=== PATIENT | male | born 1945 | race Caucasian/White ===

== ENCOUNTER 2023-05-06 17:55 | Observation (INO) | payer OTHER ==
--- OUTSIDE RECORDS SUMMARY | 2023-05-06 17:59 | XMS REPORT | Continuity of Care Document ---
Author Name Unknown Address [address] [facility] [address] [place] [address] [facility] thconnect Address [address] [facility] [address] [place] [address] Care Team Providers Care Cook Ship Name Role Phone Clarissa Krishnan Attending Clinician Unavailable Problems Condition Name Condition Details Condition Category Status Onset Date Resolution Date Last Treatment Date Treating Clinician Comments Source [id number] Glaucoma of right eye, unspecifie d glaucoma type Problem Active [facility] Social History Social Habit Start Date Stop Date Quantity Comments Source Sex Assigned At [facility] History of Tobacco Use [facility] Smoking Status Start Date Stop Date Source Unknown if ever smoked Commo n [facility] Never Smoker [facility] Medications Ordered Medication Name Filled Medication Name Start Date Stop Date Current Medication? Ordering Clinician Indication Dosage Frequency Signature (SIG) Comments Components Source Fish Oil Fish Oil No Fish Oil Garlic Garlic No Garlic Multi Vitamin Multi Vitamin No Multi Vitamin Vyzulta 0.024 % Vyzulta 0.024 % No Vyzulta 0.024 % Lumigan 0.01 % Lumigan 0.01 % No 1{drop_ into_af fected_ eye_in_ the_eve mary} QD Lumigan 0.01 % Fish Oil Fish Oil No Fish Oil Garlic Garlic No Garlic Multi Vitamin Multi Vitamin No Multi Vitamin Vyzulta 0.024 % Vyzulta 0.024 % No Vyzulta 0.024 % Lumigan 0.01 % Lumigan 0.01 % No 1{drop_ into_af fected_ eye_in_ the_eve mary} QD Lumigan 0.01 % Vyzulta 0.024 % Vyzulta 0.024 % No Vyzulta 0.024 % Vyzulta 0.024 % Vyzulta 0.024 % No Vyzulta 0.024 % Vyzulta 0.024 % Vyzulta 0.024 % No Vyzulta 0.024 % Fish Oil Fish Oil No Fish Oil Garlic Garlic No Garlic Multi Vitamin Multi Vitamin No Multi Vitamin Vyzulta 0.024 % Vyzulta 0.024 % No Vyzulta 0.024 % Lumigan 0.01 % Lumigan 0.01 % No 1{drop_ into_af fected_ eye_in_ the_eve mary} QD Lumigan 0.01 % Fish Oil Fish Oil No Fish Oil Garlic Garlic No Garlic Multi Vitamin Multi Vitamin No Multi Vitamin Vyzulta 0.024 % Vyzulta 0.024 % No Vyzulta 0.024 % Lumigan 0.01 % Lumigan 0.01 % No 1{drop_ into_af fected_ eye_in_ the_eve mary} QD Lumigan 0.01 % Fish Oil Fish Oil No Fish Oil Garlic Garlic No Garlic Multi Vitamin Multi Vitamin No Multi Vitamin Vyzulta 0.024 % Vyzulta 0.024 % No Vyzulta 0.024 % Lumigan 0.01 % Lumigan 0.01 % No 1{drop_ into_af fected_ eye_in_ the_eve mary} QD Lumigan 0.01 % Immunizations Ordered Immunization Name Filled Immunization Name Date Status Comments Source Pneumovax (PPSV23) Pneumovax (PPSV23) 2018-03-13 14:28:00 Completed [facility] Pneumovax (PPSV23) Pneumovax (PPSV23) 2018-03-13 14:28:00 Completed [facility] Pneumovax (PPSV23) Pneumovax (PPSV23) 2018-03-13 14:28:00 Completed [facility] Shingrix Shingrix 2018-01-11 14:26:[address] [facility] Shingrix Shingrix 2018-01-11 14:26:00 Completed [facility] Shingrix Shingrix 2018-01-11 14:26:00 Completed [facility] Shingrix Shingrix 2017-08-15 14:25:00 Completed [facility] Shingrix Shingrix 2017-08-15 14:25:00 Completed [facility] Shingrix Shingrix 2017-08-15 14:25:00 Completed [facility] Prevnar 13 (PCV13) Prevnar 13 (PCV13) 2017-01-24 14:27:00 Completed [facility] Prevnar 13 (PCV13) Prevnar 13 (PCV13) 2017-01-24 14:27:00 Completed [facility] Prevnar 13 (PCV13) Prevnar 13 (PCV13) 2017-01-24 14:27:00 Completed [facility] Shingrix Shingrix Unknown Completed [facility] Pneumovax (PPSV23) Pneumovax (PPSV23) Unknown Completed [facility] Prevnar 13 (PCV13) Prevnar 13 (PCV13) Unknown Completed [facility] Shingrix Shingrix Unknown Completed [facility] Shingrix Shingrix Unknown Completed [facility] Pneumovax (PPSV23) Pneumovax (PPSV23) Unknown Completed [facility] Prevnar 13 (PCV13) Prevnar 13 (PCV13) Unknown Completed [facility] Shingrix Shingrix Unknown Completed [facility] Shingrix Shingrix Unknown Completed [facility] Pneumovax (PPSV23) Pneumovax (PPSV23) Unknown Completed [facility] Prevnar 13 (PCV13) Prevnar 13 (PCV13) Unknown Completed [facility] Shingrix Shingrix Unknown Completed [facility] Shingrix Shingrix Unknown Completed [facility] Pneumovax (PPSV23) Pneumovax (PPSV23) Unknown Completed [facility] Prevnar 13 (PCV13) Prevnar 13 (PCV13) Unknown Completed [facility] Shingrix Shingrix Unknown Completed [facility] Shingrix Shingrix Unknown Completed [facility] Pneumovax (PPSV23) Pneumovax (PPSV23) Unknown Completed [facility] Prevnar 13 (PCV13) Prevnar 13 (PCV13) Unknown Completed [facility] Shingrix Shingrix Unknown Completed [facility] Vital Signs Vital Name Observation Time Observation Value Comments S ource height 2022-12-20 15:00:00 70.5 [in_i] Comm on [facility] weight 2022-12-20 15:00:00 242.2 [lb_av] Co mmon [facility] temperature 2022-12-20 15:00:00 97.7 [degF] Com mon [facility] bmi 2022-12-20 15:00:00 34.26 kg/m2 Comm on [facility] oximetry 2022-12-20 15:00:00 97 % Commo n [facility] respiratory rate 2022-12-20 15:00:00 16 /min [facility] blood pressure systolic 2022-12-20 15:00:00 134 mm[Hg] [facility] blood pressure diastolic 2022-12-20 15:00:00 70 mm[Hg] [facility] height 2022-12-20 14:00:00 70.5 [in_i] Comm on [facility] weight 2022-12-20 14:00:00 242.2 [lb_av] Co mmon [facility] temperature 2022-12-20 14:00:00 97.7 [degF] Com [facility] bmi 2022-12-20 14:00:00 34.26 kg/m2 Comm on [facility] oximetry 2022-12-20 14:00:00 97 % Commo n [facility] respiratory rate 2022-12-20 14:00:00 16 /min Common [facility] blood pressure systolic 2022-12-20 14:00:00 134 mm[Hg[facility] blood pressure diastolic 2022-12-20 14:00:00 70 mm[Hg] Common [facility] height 2021-12-21 13:20:00 70.5 [in_i] Comm on [facility] weight 2021-12-21 13:20:00 234.6 [lb_av] Co mmon [facility] temperature 2021-12-21 13:20:00 98.6 [degF] Com [facility] bmi 2021-12-21 13:20:00 33.18 kg/m2 Comm on [facility] oximetry 2021-12-21 13:20:00 97 % Commo n [facility] respiratory rate 2021-12-21 13:20:00 16 /min [facility] blood pressure systolic 2021-12-21 13:20:00 130 mm[Hg] [facility] blood pressure diastolic 2021-12-21 13:20:00 72 mm[Hg] [facility] height 2021-12-21 14:00:00 70.5 [in_i] Comm on [facility] weight 2021-12-21 14:00:00 234.6 [lb_av] Co [facility] temperature 2021-12-21 14:00:00 98.6 [degF] Com [facility] bmi 2021-12-21 14:00:00 33.18 kg/m2 Comm on [facility] oximetry 2021-12-21 14:00:00 97 % Commo n [facility] respiratory rate 2021-12-21 14:00:00 16 /min [facility] blood pressure systolic 2021-12-21 14:00:00 130 mm[Hg] [facility] blood pressure diastolic 2021-12-21 14:00:00 72 mm[Hg] [facility] height 2021-11-07 14:00:00 70.5 [in_i] Comm on [facility] weight 2021-11-07 14:00:00 225 [lb_av] Comm on [facility] temperature 2021-11-07 14:00:00 98.4 [degF] Com mon [facility] bmi 2021-11-07 14:00:00 31.82 kg/m2 Comm on [facility] oximetry 2021-11-07 14:00:00 97 % Commo n [facility] respiratory rate 2021-11-07 14:00:00 16 /min [facility] blood pressure systolic 2021-11-07 14:00:00 138 mm[Hg] [facility] blood pressure diastolic 2021-11-07 14:00:00 76 mm[Hg] [facility] Encounters Start Date/Time End Date/Time Encounter Type Admission Type Attending Clinicians Care Facility Care Department Encounter ID Source 2022-12-19 13:27:00 Outpatient Ariella Clarissa [facility] [id number] [facility] 2022-03-06 13:36:01 Outpatient Clarissa Krishnan [facility] [id number] [facility] 2021-12-19 11:26:03 Outpatient Clarissa Krishnan [facility] [id number] [facility] 2021-11-05 13:42:02 Outpatient Clarissa Krishnan [facility] [id number] [facility] 2021-10-29 11:22:05 Outpatient Clarissa Krishnan [facility] [id number] [facility] 2022-12-30 00:00:00 2022-12-30 00:00:00 (TEL) [facility]C ST[facility] [id number] [facility] 2022-12-23 00:00:00 2022-12-23 00:00:00 (TEL) STLMLC STLMLC [id number] [facility] 2022-12-20 00:00:00 2022-12-20 00:00:00 OFFICE VISIT ESTAB PT LEVEL 3 STLMLC STLMLC [id number] [facility] 2022-12-20 00:00:00 2022-12-20 00:00:00 SUB ANNUAL [facility] WELLNESS VISIT STLMLC STLMLC [id number] [facility] 2022-12-11 00:00:00 2022-12-11 00:00:00 (TEL) STLMLC STLMLC [id number] [facility] 2021-12-21 00:00:00 2021-12-21 00:00:00 OFFICE VISIT EST PT LEVEL 3 STLMLC STLMLC [id number] [facility] 2021-12-21 00:00:00 2021-12-21 00:00:00 (MCR WELL) Medicare Wellness STLMLC STLMLC [id number] [facility] 2021-11-07 00:00:00 2021-11-07 00:00:00 OFFICE VISIT NEW PT LEVEL 3 STLMLC STLMLC [id number] [facility] Results Test Description Test Time Test Comments Results Result Co mments Source COMPREHENSIVE METABOLIC [id number] 00:00:00* Test Item Value Reference Range Interpretation Comme nts ALBUMIN (test code = 1751-7) 4.9 G/DL See_Comment [Automated SocialF5a ge] The system which generated this result transmitted reference range: 3.5-5.2 G/DL. The reference range was not used to interpret this result as normal/abnormal. ALKALINE PHOSPHATASE (test code = 6768-6) 76 U/L See_Comment [Automated message] The system which generated this result transmitted reference range: 40-125 U/L. The reference range was not used to interpret this result as normal/abnormal. BILIRUBIN, TOTAL (test code = 1975-2) 0.8 MG/DL See_Comment [Automated message] The system which generated this result transmitted reference range: <=1.2 MG/DL. The reference range was not used to interpret this result as normal/abnormal. BUN (test code = 3094-0) 9 MG/DL See_Comment [Automated messa ge] The system which generated this result transmitted reference range: 8-23 MG/DL. The reference range was not used to interpret this result as normal/abnormal. CALCIUM (test code = 06622-6) 9.4 MG/DL See_Comment [Automated messa ge] The system which generated this result transmitted reference range: 8.5-10.5 MG/DL. The reference range was not used to interpret this result as normal/abnormal. CALC A/G RATIO (test code = 1759-0) 2.3 RATIO See_Comment [Automated messa ge] The system which generated this result transmitted reference range: 1.0-2.6 RATIO. The reference range was not used to interpret this result as normal/abnormal. CALC BUN/CREAT (test code = 3097-3) 8 RATIO See_Comment [Automated messa ge] The system which generated this result transmitted reference range: 6-28 RATIO. The reference range was not used to interpret this result as normal/abnormal. CALC GLOBULIN (test code = 53528-4) 2.1 G/DL See_Comment [Automated messa ge] The system which generated this result transmitted reference range: 1.9-3.7 G/DL. The reference range was not used to interpret this result as normal/abnormal. CARBON DIOXIDE (test code = 1963-8) 27 MEQ/L See_Comment [Automated messa ge] The system which generated this result transmitted reference range: 19-31 MEQ/L. The reference range was not used to interpret this result as normal/abnormal. CHLORIDE (test code = 2075-0) 105 MEQ/L See_Comment [Automated messa ge] The system which generated this result transmitted reference range: 95-107 MEQ/L. The reference range was not used to interpret this result as normal/abnormal. CREATININE (test code = 2160-0) 1.18 MG/DL See_Comment [Automated messa ge] The system which generated this result transmitted reference range: 0.80-1.40 MG/DL. The reference range was not used to interpret this result as normal/abnormal. eGFR (2020 CKD-EPI) (test code = 78012-4) 64 ML/MIN/1.73 See_Comment [Automated messa ge] The system which generated this result transmitted reference range: >60 ML/MIN/1.73. The reference range was not used to interpret this result as normal/abnormal. GLUCOSE (test code = 1558-6) 92 MG/DL See_Comment [Automated messa ge] The system which generated this result transmitted reference range: 70-99 MG/DL. The reference range was not used to interpret this result as normal/abnormal. POTASSIUM (test code = 2823-3) 4.0 MEQ/L See_Comment [Automated messa ge] The system which generated this result transmitted reference range: 3.5-5.4 MEQ/L. The reference range was not used to interpret this result as normal/abnormal. PROTEIN, TOTAL (test code = 2885-2) 7.0 G/DL See_Comment [Automated messa ge] The system which generated this result transmitted reference range: 6.1-8.3 G/DL. The reference range was not used to interpret this result as normal/abnormal. AST (test code = 1920-8) 28 U/L See_Comment [Automated messa ge] The system which generated this result transmitted reference range: 9-50 U/L. The reference range was not used to interpret this result as normal/abnormal. ALT (test code = 1742-6) 23 U/L See_Comment [Automated messa ge] The system which generated this result transmitted reference range: 5-50 U/L. The reference range was not used to interpret this result as normal/abnormal. SODIUM (test code = 2951-2) 143 MEQ/L See_Comment [Automated messa ge] The system which generated this result transmitted reference range: 133-146 MEQ/L. The reference range was not used to interpret this result as normal/abnormal.
[2023-05-06 18:48] LABS: Absolute Lymphocytes (CBC) 1.7 K/uL (0.7-4.9); Hematocrit 40.8 % (39.6-49.0); Lymphocytes % 13.9 % (15.3-44.8); MCV 88.7 fL (80-100); MPV 7.7 fL (7.6-11.3); Platelets 279 thou/uL (152-406)
[2023-05-06 18:51] LABS: Specific Gravity 1.025 (1.005-1.030); Urine Bacteria None Seen /HPF (<20); Urine Bilirubin NEGATIVE (Negative); Urine Blood Trace (Negative); Urine Clarity Clear (Clear); Urine Color Light-Yellow (Yellow); Urine Glucose NEGATIVE (Negative); Urine Mucus Slight /HPF (None Seen); Urine Protein 1+ (Negative); Urine Urobilinogen Normal (Normal)
[2023-05-06 19:26] LABS: Bilirubin Total 0.4 mg/dL (0.2-1.0); Potassium 3.7 mEq/L (3.5-5.1); Protein, Total 7.7 g/dL (6.4-8.2); Troponin High Sensitivity 29.8 pg/mL (<58.9)
[2023-05-06 19:40] LABS: Protime INR 0.96
--- NOTE | 2023-05-06 19:46 | RAD REPORT ---
EXAM DESCRIPTION: CT - Head Brain Wo Cont - 05/06/2023 7:40 pm CLINICAL HISTORY: DIZZINESS Headache, drowsiness COMPARISON: No comparisons TECHNIQUE: All CT scans are performed using dose optimization technique as appropriate and may inclu de automated exposure control or mA/KV adjustment according to patient size. FINDINGS: No intracranial hemorrhage, hydrocephalus or extra-axial fluid collection.Mild generalized brain atrophy.No areas of brain edema or evidence of midline shift. The paranasal sinuses and mastoids are clear. The calvarium is intact. IMPRESSION: No acute intracranial abnormality.
--- NOTE | 2023-05-06 19:52 | RAD REPORT ---
EXAM DESCRIPTION: CT - Head angio - 05/06/2023 7:39 pm CLINICAL HISTORY: DIZZINESS Headache, drowsiness COMPARISON: Head Brain Wo Cont dated 05/06/2023; Neck Angio dated 05/06/2023 TECHNIQUE: CT angiography of the head was performed with MIPs. All CT scans are performed using dose optimization technique as appropriate and may include automated exposure control or mA/KV adjustment according to patient size. FINDINGS: No evidence of large vessel occlusion. No evidence of aneurysm is detected. No flow-limiti ng stenosis or vascular malformation identified. Antegrade flow is seen in the vertebral arteries. The vertebral arteries are codominant. The visualized dural venous sinuses are patent. IMPRESSION: No significant flow abnormality is detected.
--- NOTE | 2023-05-06 19:57 | RAD REPORT ---
EXAM DESCRIPTION: CT - Neck Angio - 05/06/2023 7:40 pm CLINICAL HISTORY: dizziness Headache, drowsiness, dizziness COMPARISON: No comparisons TECHNIQUE: CT angiography of the neck vessels was performed with MIPs. All CT scans are performed using dose optimization technique as appropriate and may include automated exposure control or mA/KV adjustment according to patient size. FINDINGS: A left aortic arch is identified with normal three vessel configuration of the great vesse ls. No significant flow abnormality is seen of the common carotid bilaterally. No significant stenosis is identified involving the cervical segments of both internal carotid arteri es. Mild soft plaque is seen in both carotid bulbs. Normal flow is seen within both vertebral arteries. Thyroid demonstrates a large nodule in the left lobe measuring 3 cm. IMPRESSION: No significant flow abnormality of the neck vessels is identified. 3 cm left thyroid lobe nodule. Recommend nonemergent thyroid ultrasound. NASCET criteria used. Mild 0-49% stenosis Moderate 50-69% stenosis Severe 70-99% stenosis
--- NOTE | 2023-05-06 20:08 | EDPHYS ---
Physician Documentation [facility] Name: Cipriano Wang Age: 78 yrs Sex: Male : 1945 Arrival Date: 05/06/2023 Time: 17:55 Bed 7 Private MD: ED Physician Isaias Rojas HPI: 05/06 18:25 This 78 yrs old Male presents to ER via Ambulatory with complaints of ec2 Dizziness. 18:25 Patient arrives today for vertigo. Patient with no history of vertigo, states that ec2 since approximately 25 hours ago he been feeling a room spinning sensation. Reports no fevers or chills, no cough or cold symptoms, no vomiting or diarrhea. Does report some nausea. Reports no recent falls or trauma.. Historical: - Allergies: 18:22 No Known Allergies; ph - Home Meds: 18:22 2 Eye Drops [Active]; ph - PMHx: 18:22 Glaucoma; ph - PSHx: 18:22 None; ph - Immunization history:: Adult Immunizations up to date, Client reports receiving the 2nd dose of the Covid vaccine, Last tetanus immunization: up to date. - Social history:: Smoking status: Patient denies any tobacco usage or history of. ROS: 18:25 Constitutional: as per hpi ec2 Exam: 18:25 Constitutional: GEN: NAD Head: atraumatic Eyes: EOMI Ears: External ears are ec2 normal. CV: regular rate LUNGS: no respiratory distress ABD: non-distended SKIN: no evidence of rashes MSK: no evidence of trauma NEURO: moves all extremities equally, cranial nerves II through XII intact, strength intact all 4 extremities, normal [id number], appropriate gait, no pronator drift. Vital Signs: 18:19 BP 192 / 106; Pulse 88; Resp 20; Temp 98.2; Pulse Ox 100% ; Weight 108.86 kg; Height 6 ph ft. 0 in. ; Pain 4/10; 18:43 Pulse 81; Resp 18 S; Pulse Ox 100% on R/A; kc6 19:10 BP 158 / 104; Pulse 77; Resp 18; Pulse Ox 99% ; vc1 20:58 BP 164 / 113; Pulse 77; Resp 18; Pulse Ox 98% ; vc1 21:47 BP 165 / 107; Pulse 79; Resp 18; Pulse Ox 100% ; vc1 22:39 BP 162 / 104; Pulse 50; Resp 18; Pulse Ox 98% ; vc1 18:19 Body Mass Index 32.55 (108.86 kg, 182.88 cm) ph 18:19 Pain Scale: Adult ph NIH Stroke Scale Scores: 18:25 NIHSS Score: 0 ph MDM: 18:18 Patient medically screened. ec2 18:25 Data reviewed: vital signs. ED course: Patient arrives today for evaluation of ec2 dizziness. Examination remarkable for well-appearing nontoxic dividual's otherwise in no acute distress with a reassuring neurologic exam. Will obtain lab work, EKG, CT scan of the head. Currently considered process such as ACS, electrolyte disturbances, arrhythmia, stroke.. 18:41 ED course: EKG independently reviewed and interpreted by me, shows normal sinus rhythm, ec2 rate of 82, no acute ST segment elevations, nonconcerning intervals.. 19:34 ED course: CBC, metabolic profile, urine, troponin are nonactionable. Pending CT ec2 imaging. . 20:01 ED course: CT imaging shows no acute intracranial process.. ec2 20:06 ED course: Patient with persistent dizziness, will admit to the hospitalist for ec2 continued management.. 05/06 18:24 Order name: CBC with Diff; Complete Time: 19:33 ec2 05/06 18:24 Order name: CMP; Complete Time: 19:33 ec2 05/06 18:24 Order name: Troponin High Sensitivity; Complete Time: 19:33 ec2 05/06 18:24 Order name: UAM; Complete Time: 19:33 ec2 05/06 18:24 Order name: Ptt, Activated; Complete Time: 19:41 ec2 05/06 18:24 Order name: PT-INR; Complete Time: 19:41 ec2 05/06 20:50 Order name: NT PRO-BNP EDMS 05/06 20:50 Order name: CBC with Automated Diff EDMS 05/06 20:50 Order name: CBC with Automated Diff EDMS 05/06 20:50 Order name: Comprehensive Metabolic Panel EDMS 05/06 20:50 Order name: Comprehensive Metabolic Panel EDMS 05/06 20:50 Order name: Lipid Profile EDMS 05/06 20:50 Order name: Lipid Profile EDMS 05/06 20:50 Order name: Troponin High Sensitivity EDMS 05/06 20:50 Order name: Troponin High Sensitivity EDTX 05/06 20:50 Order name: Thyroid Stimulating Hormone EDTX 05/06 21:00 Order name: Hemoglobin A1c EDTX 05/07 06:41 Order name: T4 Free EDTX 05/06 18:24 Order name: CT Head Angio; Complete Time: 20:01 ec2 05/06 18:24 Order name: CT Head Brain wo Cont; Complete Time: 20:01 ec2 05/06 18:24 Order name: CT Neck Angio; Complete Time: 20:01 ec2 05/06 20:56 Order name: Echo with Doppler EDTX 05/06 18:24 Order name: EKG; Complete Time: 18:25 ec2 05/06 18:24 Order name: EKG - Nurse/Tech; Complete Time: 18:39 ec2 05/06 18:25 Order name: Accucheck; Complete Time: 18:42 ec2 05/06 18:25 Order name: Cardiac monitoring; Complete Time: 18:39 ec2 05/06 18:25 Order name: IV Saline Lock; Complete Time: 18:42 ec2 05/06 18:25 Order name: Labs collected and sent; Complete Time: 18:42 ec2 05/06 18:25 Order name: NPO; Complete Time: 18:42 ec2 05/06 18:25 Order name: O2 Per Protocol; Complete Time: 18:34 ec2 05/06 18:25 Order name: O2 Sat Monitoring; Complete Time: 18:34 ec2 05/06 18:25 Order name: Stroke Swallow Screen; Complete Time: 18:42 ec2 Administered Medications: No medications were administered Disposition Summary: 05/06/23 20:07 Hospitalization Ordered Notes: Hospitalization Status: Inpatient Admission ec2 Provider: Shania Anguiano ec2 Condition: Stable ec2 Problem: new ec2 Symptoms: are unchanged ec2 Bed/Room Type: Standard ec2 Location: Telemetry/MedSurg (Inpatient)(05/07/23 11:25) bd Room Assignment: [facility](05/07/23 11:30) bd Diagnosis - Other peripheral vertigo ec2 Forms: - Medication Reconciliation Form ec2 - SBAR form ec2 - Leadership Thank You Letter ec2 NIH Stroke Scale - NIH Stroke Score Date: 05/06/2023 Time: 18:25 Total Score = 0 10. Dysarthria (speech clarity - read or repeat words) - 0(Normal) 11. Extinction and Inattention (visual/tactile/auditory/spatial/personal) - 0(No abnormality) 1a. Level of Consciousness (LOC) - 0(Alert) 1b. Level of Consciousness (LOC) (Month \T\ Age) - 0(Both) 1c. LOC Commands (Open \T\ Closes Eyes/Burnishing Machine Operator) - 0(Both) 2. Best Gaze (Lateral Gaze Paresis) - 0(Normal) 3. Visual Field Loss - 0(No visual loss) 4. Facial Palsy - 0(Normal) 5a. Left Arm: Motor (10-second hold) - 0(No drift) 5b. Right Arm: Motor (10-second hold) - 0(No drift) 6a. Left Leg: Motor (5-second hold - always test supine) - 0(No drift) 6b. Right Leg: Motor (5-second hold - always test supine) - 0(No drift) 7. Limb Ataxia (finger/nose \T\ heel/jasso - test with eyes open) - 0(Absent) 8. Sensory Loss (pinprick arms/legs/face) - 0(Normal) 9. Best Language: Aphasia (description/naming/reading) - 0(No aphasia) Initials: ph Signatures: Dispatcher [employer] Bridget Vogt Patricia RN RN ph Catie Kang RN RN Isaias Rojas MD MD ec2 Corrections: (The following items were deleted from the chart) 21:54 20:07 Telemetry/MedSurg (Inpatient) [facility] : 20:07 [facility] 05/07 11:25 05/06 21:54 [facility] ER HOLD cg bd 05/07 11:25 05/06 21:54 ERHOLD- cg bd 05/07 11:29 11:25 401 bd bd 11:30 11: bd bd
--- NOTE | 2023-05-06 20:08 | ER ---
Nurse's Notes [facility] Name: Cipriano Wang Age: 78 yrs Sex: Male : 1945 Arrival Date: 05/06/2023 Time: 17:55 Bed 7 Private MD: Diagnosis: Other peripheral vertigo Presentation: 05/06 18:19 Chief complaint: Patient states: Sudden onset of headache and dizziness yesterday at ph 1730 with associated nausea. Gait steady. Coronavirus screen: Vaccine status: Patient reports receiving the 2nd dose of the covid vaccine. Client denies travel out of the [place] in the last 14 days. Ebola Screen: Patient negative for fever greater than or equal to 101.5 degrees Fahrenheit, and additional compatible Ebola Virus Disease symptoms Patient denies exposure to infectious person. Patient denies travel to an Ebola-affected area in the 21 days before illness onset. Initial Sepsis Screen: Does the patient meet any 2 criteria? No. Patient's initial sepsis screen is negative. Does the patient have a suspected source of infection? No. Patient's initial sepsis screen is negative. Risk Assessment: Do you want to hurt yourself or someone else? Patient reports no desire to harm self or others. Onset of symptoms was May 05, 2023 at 17:30. 18:19 Method Of Arrival: Ambulatory 18:19 Acuity: NOLAN 2 Triage Assessment: 18:22 General: Appears in no apparent distress. Behavior is calm, cooperative. Pain: ph Complains of pain in head Pain does not radiate. Pain currently is 4 out of 10 on a pain scale. Neuro: No deficits noted. 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 Gait is steady, Speech is normal, Facial symmetry appears normal, Pupils are PERRLA, Intact Reports blurred vision dizziness, headache. Historical: - Allergies: 18:22 No Known Allergies; ph - Home Meds: 18:22 2 Eye Drops [Active]; ph - PMHx: 18:22 Glaucoma; ph - PSHx: 18:22 None; ph - Immunization history:: Adult Immunizations up to date, Client reports receiving the 2nd dose of the Covid vaccine, Last tetanus immunization: up to date. - Social history:: Smoking status: Patient denies any tobacco usage or history of. Screenin:25 [facility] ED Fall Risk Assessment (Adult) History of falling in the last 3 months, ph including since admission No falls in past 3 months (0 pts) Confusion or Disorientation No (0 pts) Intoxicated or Sedated No (0 pts) Impaired Gait No (0 pts) Mobility Assist Device Used No (0 pt) Altered Elimination No (0 pt) Score/Fall Risk Level 0 - 2 = Low Risk Oriented to surroundings. Abuse screen: Denies threats or abuse. Denies injuries from another. Nutritional screening: No deficits noted. Tuberculosis screening: No symptoms or risk factors identified. 18:43 [place] Swallow Protocol Brief Cognitive Screen What is your name? Normal, Where are you kc6 right now? Normal, What year is it? Normal. Oral Mechanism Examination Facial Symmetry: Normal, Motion: Normal, Lip Closure: Normal, Oral Mechanism Result: Normal. 3 oz Water Swallow Challenge: Pt able to drink all water without stopping, coughing, choking or throat clearing: Yes Result: PASS MD Notified: Isaias Rojas MD. Assessment: 18:30 General: Pt ambulatory to restroom, gait steady. Pt reports dizziness upon standing. ph 18:30 General: Appears in no apparent distress. comfortable, well groomed, well developed, kc6 Behavior is calm, cooperative, appropriate for age. Neuro: Level of Consciousness is awake, alert, obeys commands, Oriented to person, place, time, situation, Appropriate for age Reports dizziness, headache. Cardiovascular: Denies chest pain, Heart tones S1 S2 present Capillary refill < 3 seconds Rhythm is sinus rhythm. Respiratory: Airway is patent Trachea midline Respiratory effort is even, unlabored, Respiratory pattern is regular, symmetrical, Denies shortness of breath. GI: Reports nausea, Patient currently denies abdominal pain, diarrhea, vomiting. : No signs and/or symptoms were reported regarding the genitourinary system. EENT: No signs and/or symptoms were reported regarding the EENT system. Derm: No signs and/or symptoms reported regarding the dermatologic system. Skin is intact, is healthy with good turgor, Skin is pink, warm \T\ dry. Musculoskeletal: No signs and/or symptoms reported regarding the musculoskeletal system. Circulation, motion, and sensation intact. Capillary refill < 3 seconds, Range of motion: intact in all extremities. 19:10 Reassessment: No changes from previously documented assessment. Patient and/or family vc1 updated on plan of care and expected duration. Pain level reassessed. Patient is alert, oriented x 3, equal unlabored respirations, skin warm/dry/pink. 20:58 Reassessment: No changes from previously documented assessment. Patient and/or family vc1 updated on plan of care and expected duration. Pain level reassessed. 21:47 Reassessment: No changes from previously documented assessment. Patient and/or family vc1 updated on plan of care and expected duration. Pain level reassessed. Patient is alert, oriented x 3, equal unlabored respirations, skin warm/dry/pink. 05/07 11:43 Reassessment: Attempted to call report, left msg on phone. No answer at 1445 and 1440. ko1 Vital Signs: 05/06 18:19 BP 192 / 106; Pulse 88; Resp 20; Temp 98.2; Pulse Ox 100% ; Weight 108.86 kg; Height 6 ph ft. 0 in. ; Pain 4/10; 18:43 Pulse 81; Resp 18 S; Pulse Ox 100% on R/A; kc6 19:10 BP 158 / 104; Pulse 77; Resp 18; Pulse Ox 99% ; vc1 20:58 BP 164 / 113; Pulse 77; Resp 18; Pulse Ox 98% ; vc1 21:47 BP 165 / 107; Pulse 79; Resp 18; Pulse Ox 100% ; vc1 22:39 BP 162 / 104; Pulse 50; Resp 18; Pulse Ox 98% ; vc1 18:19 Body Mass Index 32.55 (108.86 kg, 182.88 cm) ph 18:19 Pain Scale: Adult ph NIH Stroke Scale Scores: 18:25 NIHSS Score: 0 ph ED Course: 18:04 Patient arrived in ED. mg5 18:06 Isaias Rojas MD is Attending Physician. ec2 18:22 Triage completed. ph 18:22 Arm band placed on right wrist. Patient placed in an exam room, on a stretcher. ph 18:25 Patient has correct armband on for positive identification. Bed in low position. Call ph light in reach. Side rails up X2. Provided Education on: Plan of care. 18:25 No provider procedures requiring assistance completed. ph 18:37 [facility] Sent. ph 18:40 EKG done, by ED staff, reviewed by Isaias Rojas MD. em1 18:42 Inserted saline lock: 20 gauge in left antecubital area, using aseptic technique. Blood kc6 collected. Patient maintains SpO2 saturation greater than 95% on room air. 19:41 CT Head Angio In Process Unspecified. EDMS 19:42 CT Head Brain wo Cont In Process Unspecified. EDMS 19:42 CT Neck Angio In Process Unspecified. EDMS 20:07 Shania Anguiano MD is Hospitalizing Provider. ec2 05/07 03:58 Patient admitted, IV remains in place. km8 05:41 Inserted saline lock: 22 gauge in right hand, using aseptic technique. Blood collected. oe 07:10 Madeline Maria, BRIDGETT is Primary Nurse. ko1 Administered Medications: No medications were administered Medication: 05/06 19:57 VIS not applicable for this client. km8 Outcome: 20:07 Decision to Hospitalize by Provider. ec2 05/07 03:58 Admitted to ER Hold. Please see [facility] for further documentation. km8 Condition: stable 03:58 Instructed on the need for admit, Demonstrated understanding of instructions, km8 11:53 Admitted to Med/surg accompanied by tech, via stretcher, room 401, with chart, Report ko1 called to BRIDGETT Hussein 12:54 Patient left the ED. ko1 NIH Stroke Scale - NIH Stroke Score Date: 05/06/2023 Time: 18:25 Total Score = 0 10. Dysarthria (speech clarity - read or repeat words) - 0(Normal) 11. Extinction and Inattention (visual/tactile/auditory/spatial/personal) - 0(No abnormality) 1a. Level of Consciousness (LOC) - 0(Alert) 1b. Level of Consciousness (LOC) (Month \T\ Age) - 0(Both) 1c. LOC Commands (Open \T\ Closes Eyes/Counseling Director) - 0(Both) 2. Best Gaze (Lateral Gaze Paresis) - 0(Normal) 3. Visual Field Loss - 0(No visual loss) 4. Facial Palsy - 0(Normal) 5a. Left Arm: Motor (10-second hold) - 0(No drift) 5b. Right Arm: Motor (10-second hold) - 0(No drift) 6a. Left Leg: Motor (5-second hold - always test supine) - 0(No drift) 6b. Right Leg: Motor (5-second hold - always test supine) - 0(No drift) 7. Limb Ataxia (finger/nose \T\ heel/jasso - test with eyes open) - 0(Absent) 8. Sensory Loss (pinprick arms/legs/face) - 0(Normal) 9. Best Language: Aphasia (description/naming/reading) - 0(No aphasia) Initials: ph Signatures: Dispatcher [employer] Woo Yo em1 Pao Larios RN RN Osman Phillip Vanessa, RN RN vc1 Joanna Dejesus RN RN kc6 Madeline Maria, RN RN ko1 [facility]5 Isaias Rojas MD MD ec2 Reny Saenz, RN RN km8
[2023-05-06] MEDS ORDERED: ALPRAZOLAM 0.25 MG TABLET PO PRN (20:43)
[2023-05-06] MEDS ORDERED: ACETAMINOPHEN 325 MG TABLET PO PRN (20:43)
[2023-05-06] MEDS ORDERED: ONDANSETRON 4 MG/2 ML VIAL IV PRN (20:43)
--- NOTE | 2023-05-06 21:05 | P.HP ---
Certification for Inpatient Patient admitted to: Observation With expected LOS: <2 Midnights Patient will require the following post-hospital care: None Practitioner: I am a practitioner with admitting privileges, knowledge of patient current condition, hospital course, and medical plan of care. Services: Services provided to patient in accordance with Admission requirements found in Title 42 Section 412.3 of the Code of Federal Regulations Patient History Date of Service: 05/06/23 Reason for admission: Dizziness History of Present Illness: 78-year-old male with a history of glaucoma hide presented to the ED with dizziness, nausea and headaches that started yesterday evening. Patient reports symptoms "mostly when he changed position from lying to sitting up or from sitting to standing". He usually has a wave of dizziness and has to gently ease up when making this motions. He denied any vomiting, URI symptoms, tinnitus, diarrhea, falls, palpitations, leg swelling, chest pain and orthopnea. When he arrived to the ED, NIHSS score was 0. Initial blood pressure was 192/106 and later decreased to 158/104 without any intervention. Patient does not take any blood pressure medicines except for his glaucoma medicine. ED labs are notable for WBC of 12, GFR 60 and some trace blood in the UA. CT head negative for any acute findings and CTA head and neck were negative for stenosis but there was a 3 cm left thyroid nodule. EKG was normal. Patient was admitted for further workup. Orthostatic vitals; sitting 188/111, HR 80, sitting 201/126, HR 84 and standing 189/113 and HR 90 and during evaluation of orthostatics, he did complain of some dizziness from lying to sitting position. Allergies No Known Allergies Allergy (Unverified 08/01/12 10:56) - Past Medical/Surgical History Diabetic: No -: Glaucoma Past Surgical History: Reviewed- Non-Contributory - Social History Smoking Status: Unknown if ever smoked Review of Systems 10-point ROS is otherwise unremarkable Physical Examination - Vital Signs Temperature: 98.2 F Blood Pressure: 188/111 Pulse: 80 Respirations: 18 Pulse Ox (%): 99 - Physical Exam General: Alert, In no apparent distress, Oriented x3, Cooperative HEENT: Atraumatic Neck: Supple, JVD not distended Respiratory: Clear to auscultation bilaterally Cardiovascular: No edema, Regular rate/rhythm, Normal S1 S2 Gastrointestinal: Normal bowel sounds, Soft and benign Musculoskeletal: No swelling, No erythema, No tenderness Integumentary: No rashes, No erythema Neurological: Normal gait, Normal strength at 5/5 x4 extr, Sensation intact - Studies Laboratory Data (last 24 hrs) 05/06/23 05/06/23 05/06/23 18:39 18:39 18:39 WBC 12.10 H Hgb 14.1 Hct 40.8 Plt Count 279 PT 10.6 INR 0.96 APTT 32.6 Sodium 141 Potassium 3.7 BUN 14 Creatinine 1.23 Glucose 105 Total Bilirubin 0.4 AST 22 ALT 29 Alkaline Phosphatase 76 Assessment and Plan - Plan Uncontrolled hypertension with dizziness CT head, CTA head and neck negative for acute pathology Negative for orthostasis Observe on telemetry Follow-up BNP, TSH, A1c and lipid panel Start lisinopril 20 mg and HCTZ 25 mg Echo to evaluate for hypertensive heart disease CKD stage II Monitor renal function Glaucoma Currently on Alphagan, latanoprost and Lumigan - Advance Directives Does patient have a Living Will: No Does patient have a Durable POA for Healthcare: No
[2023-05-07 04:19] VITALS: BMI 32.5
[2023-05-07 05:51] LABS: Absolute Lymphocytes (CBC) 1.4 K/uL (0.7-4.9); Hematocrit 38.1 % (39.6-49.0); Lymphocytes % 14.4 % (15.3-44.8); MCV 87.4 fL (80-100); MPV 7.7 fL (7.6-11.3); Platelets 252 thou/uL (152-406); RBC Red Blood Cell Count 4.36 M/uL (4.33-5.43)
[2023-05-07 06:20] LABS: Albumin 3.5 g/dL (3.4-5.0); Bilirubin Total 0.6 mg/dL (0.2-1.0); Potassium 3.9 mEq/L (3.5-5.1); Protein, Total 6.7 g/dL (6.4-8.2); Troponin High Sensitivity 51.9 pg/mL (<58.9)
[2023-05-07 06:28] LABS: Thyroid Stimulating Hormone 6.05 uIU/mL (0.358-3.740)
[2023-05-07] MEDS: ENOXAPARIN 40 MG/0.4 ML SQ SCH (08:38)
[2023-05-07] MEDS ORDERED: hydroCHLOROthiazide 25 MG TAB ONE (08:40)
[2023-05-07] MEDS ORDERED: lisinopriL 20 MG TAB ONE (08:40)
[2023-05-07] MEDS ORDERED: ENOXAPARIN 40 MG/0.4 ML SQ ONE (08:40)
[2023-05-07] MEDS ORDERED: lisinopriL 20 MG TAB PO SCH (09:00)
[2023-05-07] MEDS ORDERED: hydroCHLOROthiazide 25 MG TAB PO SCH (09:00)
[2023-05-07] MEDS ORDERED: CLOPIDOGREL 75 MG TABLET PO ONE (11:21)
[2023-05-07] MEDS ORDERED: ASPIRIN EC 81 MG TAB PO ONE ×2 (11:21→11:47)
[2023-05-07] MEDS ORDERED: CLOPIDOGREL 75 MG TABLET ONE (11:47)
--- NOTE | 2023-05-07 15:25 | RAD REPORT ---
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 FINDINGS: No intracranial hemorrhage, hydrocephalus or extra-axial fluid collections.Mild brain atro phy with mild periventricular and deep white matter chronic microvascular ischemic changes. No edema or shift of midline structures. No findings to suspect brain mass. DWI is negative for acute CVA. Midline structures are normally formed. Mastoid air cells and paranasal sinuses are clear. IMPRESSION: Negative for acute CVA or other acute intracranial process.
[2023-05-07] MEDS: AMLODIPINE 10 MG TAB PO SCH (16:21)
[2023-05-07] MEDS: LOSARTAN POTASSIUM 50 MG TABLET PO SCH ×2 (16:21→20:12)
--- NOTE | 2023-05-07 17:24 | EKG ---
Test Date: 2023-05-06 Test Time: 18:37:44 Brim Molder: TUCKER MEASUREMENT RESULTS: Intervals: Rate: 82 OK: 188 QRSD: 86 QT: 372 QTc: 434 Carson: P: 29 OK: 188 QRS: -18 T: 36 INTERPRETIVE STATEMENTS: Normal sinus rhythm Normal ECG No previous ECG available for comparison Electronically Signed On 05-07-23 17:23:06 SECURITY SOLUTIONS ENGINEER by Prasad Trevizo
[2023-05-07] MEDS ORDERED: LOSARTAN POTASSIUM 50 MG TABLET PO SCH (21:00)
[2023-05-07] MEDS ORDERED: ATORVASTATIN 40 MG TAB PO SCH (21:00)
[2023-05-07 23:08] VITALS: O2SAT 97
--- NOTE | 2023-05-08 08:17 | P.PN ---
Subjective Date of Service: 05/08/23 Chief Complaint: Dizziness - Physical Exam General: Alert, In no apparent distress, Oriented x3, Cooperative HEENT: Atraumatic Neck: Supple, JVD not distended Respiratory: Clear to auscultation bilaterally Cardiovascular: No edema, Regular rate/rhythm, Normal S1 S2 Gastrointestinal: Normal bowel sounds, Soft and benign Musculoskeletal: No swelling, No erythema, No tenderness Integumentary: No rashes, No erythema Neurological: Normal gait, Normal strength at 5/5 x4 extr, Sensation intact Review of Systems per HPI Physical Examination - Vital Signs Temperature: 98 F Blood Pressure: 118/75 Pulse: 68 Respirations: 18 Pulse Ox (%): 98 Assessment And Plan - Plan - Plan Uncontrolled hypertension with dizziness CT head, CTA head and neck negative for acute pathology Negative for orthostasis Observe on telemetry Follow-up BNP, TSH, A1c and lipid panel Start lisinopril 20 mg and HCTZ 25 mg Echo to evaluate for hypertensive heart disease Leukocytosis resolved WBC 12.10, 9.870 UA within normal limit CKD stage II Monitor renal function Glaucoma Currently on Alphagan, latanoprost and Lumigan DVT Lovenox Full code Cardiac diet - Advance Directives Does patient have a Living Will: No Does patient have a Durable POA for Healthcare: No Discharge Plan: Home - Code Status/Comfort Care Code Status: Full Code Critical Care: No Time Spent Managing PTS Care (In Minutes): 34
--- NOTE | 2023-05-08 08:20 | P.DS ---
Admission Date: 05/06/23 Discharge Date: 05/08/23 Disposition: ROUTINE DISCHARGE Discharge Condition: FAIR Reason for Admission: Dizziness Brief History of Present Illness: 78-year-old male with a history of glaucoma hide presented to the ED with dizziness, nausea and headaches that started yesterday evening. Patient reports symptoms "mostly when he changed position from lying to sitting up or from sitting to standing". He usually has a wave of dizziness and has to gently ease up when making this motions. He denied any vomiting, URI symptoms, tinnitus, diarrhea, falls, palpitations, leg swelling, chest pain and orthopnea. When he arrived to the ED, NIHSS score was 0. Initial blood pressure was 192/106 and later decreased to 158/104 without any intervention. Patient does not take any blood pressure medicines except for his glaucoma medicine. ED labs are notable for WBC of 12, GFR 60 and some trace blood in the UA. CT head negative for any acute findings and CTA head and neck were negative for stenosis but there was a 3 cm left thyroid nodule. EKG was normal. Patient was admitted for further workup. Orthostatic vitals; sitting 188/111, HR 80, sitting 201/126, HR 84 and standing 189/113 and HR 90 and during evaluation of orthostatics, he did complain of some dizziness from lying to sitting position. - Physical Exam General: Alert, In no apparent distress, Oriented x3, Cooperative HEENT: Atraumatic Neck: Supple, JVD not distended Respiratory: Clear to auscultation bilaterally Cardiovascular: No edema, Regular rate/rhythm, Normal S1 S2 Gastrointestinal: Normal bowel sounds, Soft and benign Musculoskeletal: No swelling, No erythema, No tenderness Integumentary: No rashes, No erythema Neurological: Normal gait, Normal strength at 5/5 x4 extr, Sensation intact Hospital Course: 78 year-old male patient presented with dizziness, was noted to have hypertensive urgency. Was treated with as needed antihypertensives resumption of home blood pressure medications. CT of the head negative for acute abnormality Condition improved with control of hypertension. Stable for discharge to follow-up cardiology and appointment with primary care physician. PROBLEM: Hypertensive urgency Dizziness Thyroid nodule Hypothyroidism Started on Synthroid Thyroid ultrasound ordered Follow up biopsy of thyroid nodule Thyroid ultrasound FINDINGS: The right lobe of the thyroid measures 3.7 centimeters. Several subcentimeter nodules right lobe likely benign The left lobe of the thyroid measures 5.6 centimeters. A 2.7 centimeter mostly isoechoic well-circumscribed nodule left lobe. It is cystic and solid appearing. It contains a few calcifications Additional smaller nodules likely benign IMPRESSION: 2.7 centimeter left thyroid nodule TR 3. Ultrasound-guided FNA recommended Echo findings COMMENTS: 1. NORMAL LEFT VENTRICULAR EJECTION FRACTION 60-65% 2. NORMAL WALL MOTION 3. GRADE I DIASTOLIC DYSFUNCTION 4. MILD MITRAL REGURGITATION Continue home blood pressure medicines as previously prescribed Follow-up with cardiology in 1 to 2 weeks after discharge GOAL: Clear understanding of disease process INSTRUCTIONS: Physician Discharge Instructions: -DC IV and DC home -Follow-up with PCP in 1 to 2 weeks -Please call Dr. Keyes at [phone] if any questions regarding hospital stay -Please call nursing station at [phone] if any nursing or medication questions -Return to the emergency room if symptoms worsen Diet: ADA, low sodium Activity: Fall precautions DME: Date Ordered: Name of Company: [employer] Services Needed: None Date or Referral: IMMUNIZATION Influenza Vaccine Indicated: Influenza Vaccine Given: Date Given: Pneumonia Vaccine Indicated: Pneumonia Vaccine Given: Date Given: Vital Signs/Physical Exam: Temp Pulse Resp BP Pulse Ox 98 F 68 18 118/75 98 05/08/23 08:17 05/08/23 08:17 05/08/23 08:17 05/08/23 08:17 05/08/23 08:17 Laboratory Data at Discharge: WBC 9.80 thou/uL (4.3-10.9) 05/07/23 05:37 Hgb 13.6 g/dL (13.6-17.9) 05/07/23 05:37 Hct 38.1 % (39.6-49.0) L 05/07/23 05:37 Plt Count 252 thou/uL (152-406) 05/07/23 05:37 PT 10.6 SECONDS (9.5-12.5) 05/06/23 18:39 INR 0.96 05/06/23 18:39 APTT 32.6 SECONDS (24.3-36.9) 05/06/23 18:39 Sodium 141 mEq/L (136-145) 05/07/23 05:37 Potassium 3.9 mEq/L (3.5-5.1) 05/07/23 05:37 BUN 13 mg/dL (7-18) 05/07/23 05:37 Creatinine 0.96 mg/dL (0.70-1.30) 05/07/23 05:37 Glucose 101 mg/dL (74-106) 05/07/23 05:37 Total Bilirubin 0.6 mg/dL (0.2-1.0) 05/07/23 05:37 AST 20 U/L (15-37) 05/07/23 05:37 ALT 25 U/L (16-61) 05/07/23 05:37 Alkaline Phosphatase 71 U/L (45-117) 05/07/23 05:37 Triglycerides 64 mg/dL (<150) 05/07/23 05:37 Cholesterol 161 mg/dL (<200) 05/07/23 05:37 HDL Cholesterol 48 mg/dL (40-60) 05/07/23 05:37 Cholesterol/HDL Ratio 3.35 05/07/23 05:37 Home Medications: Bimatoprost [Lumigan] 1 drop EACH EYE BEDTIME 05/07/23 Brimonidine Tartrate [Alphagan P] 1 drop EACH EYE Q12HR 05/07/23 Amlodipine [Norvasc*] 10 mg PO DAILY 30 Days #30 tab 05/08/23 Levothyroxine [Synthroid] 25 mcg PO DAILY 30 Days #30 mcg 05/08/23 Losartan Potassium [Cozaar] 50 mg PO DAILY 30 Days #30 tablet 05/08/23 New Medications: Losartan Potassium [Cozaar] 50 mg PO DAILY 30 Days #30 tablet Amlodipine [Norvasc*] 10 mg PO DAILY 30 Days #30 tab Levothyroxine [Synthroid] 25 mcg PO DAILY 30 Days #30 mcg Physician Discharge Instructions: 78 year-old male patient presented with dizziness, was noted to have hypertensive urgency. Was treated with as needed antihypertensives resumption of home blood pressure medications. CT of the head negative for acute abnormality Condition improved with control of hypertension. Stable for discharge to follow-up cardiology and appointment with primary care physician. PROBLEM: Hypertensive urgency-blood pressure 173/93, 166/108, 158/102, on blood pressure medication Uncontrolled Hypertension Dizziness incidental finding thyroid nodule hypothyroidism start Synthroid, repeat TSH w PCP in 4-6 wk, TSH 6.050, free T4 is normal tart Amlodipine, cozaar hypertension medications as directed Lipid panel was normal thyroid ultrasound ECHO 1. NORMAL LEFT VENTRICULAR EJECTION FRACTION 60-65% 2. NORMAL WALL MOTION 3. GRADE I DIASTOLIC DYSFUNCTION 4. MILD MITRAL REGURGITATION MRI Brain IMPRESSION: Negative for acute CVA or other acute intracranial process CT head/neck IMPRESSION: No acute intracranial abnormality, IMPRESSION: No significant flow abnormality of the neck vessels is identified. 3 cm left thyroid lobe nodule. Recommend nonemergent thyroid ultrasound. Continue home blood pressure medicines as previously prescribed Follow-up with cardiology in 1 to 2 weeks after discharge GOAL: Clear understanding of disease process INSTRUCTIONS: Physician Discharge Instructions: -DC IV and DC home -Follow-up with PCP in 1 to 2 weeks -Please call Dr. Keyes at [phone] if any questions regarding hospital stay -Please call nursing station at [phone] if any nursing or medication questions -Return to the emergency room if symptoms worsen Diet: ADA, low sodium Activity: Fall precautions DME: Date Ordered: Name of Company: [employer] Services Needed: None Date or Referral: IMMUNIZATION Influenza Vaccine Indicated: Influenza Vaccine Given: Date Given: Pneumonia Vaccine Indicated: Pneumonia Vaccine Given: Diet: AHA Activity: Fall precautions Followup: Clarissa Krishnan MD [Primary Care Provider] - Time spent managing pt's care (in minutes): 55
[2023-05-08] MEDS: ENOXAPARIN 40 MG/0.4 ML SQ SCH (08:26)
--- NOTE | 2023-05-08 08:26 | ECHO ---
HEIGHT: 6 ft 0 in WEIGHT: 240 lb 0 oz DATE OF STUDY: 05/07/[address]: Shania Anguiano MD 2-DIMENSIONAL: YES M.MODE: YES DOPPLER: YES COLOR FLOW: YES TDS: PORTABLE: YES DEFINITY: BUBBLE STUDY: DIAGNOSIS: HYPERTENSIVE HEART DISEASE CARDIAC HISTORY: CATHERIZATION: SURGERY: PROSTHETIC VALVE: PACEMAKER: MEASUREMENTS (cm) DIASTOLIC (NORMALS) SYSTOLIC (NORMALS) IVSd 0.9 (0.6-1.2) LA Diam 3.4 (1.9-4.0) LVEF 60-65% LVIDd 3.8 (3.5-5.7) LVIDs 2.2 (2.0-3.5) %FS 43% LVPWd 1.1 (0.6-1.2) Ao Diam 3.3 (2.0-3.7) 2 DIMENSIONAL ASSESSMENT: RIGHT ATRIUM: NORMAL LEFT ATRIUM: NORMAL RIGHT VENTRICLE: NORMAL LEFT VENTRICLE: NORMAL TRICUSPID VALVE: NORMAL MITRAL VALVE: MILD MITRAL REGURGITATION PULMONIC VALVE: NOT WELL SEEN AORTIC VALVE: NORMAL PERICARDIAL EFFUSION: NONE AORTIC ROOT: NORMAL LEFT VENTRICULAR WALL MOTION: NORMAL DOPPLER/COLOR FLOW: MILD MITRAL REGURGITATION COMMENTS: 1. NORMAL LEFT VENTRICULAR EJECTION FRACTION 60-65% 2. NORMAL WALL MOTION 3. GRADE I DIASTOLIC DYSFUNCTION 4. MILD MITRAL REGURGITATION TECHNOLOGIST: TERRY MENCHACA
[2023-05-08] MEDS: LOSARTAN POTASSIUM 50 MG TABLET PO SCH (08:27)
[2023-05-08] MEDS: AMLODIPINE 10 MG TAB PO SCH (08:27)
[2023-05-08] MEDS ORDERED: ASPIRIN EC 81 MG TAB PO SCH (09:00)
[2023-05-08] MEDS ORDERED: AMLODIPINE 10 MG TAB PO SCH (09:00)
[2023-05-08] MEDS ORDERED: CLOPIDOGREL 75 MG TABLET PO SCH (09:00)
--- NOTE | 2023-05-08 15:26 | RAD REPORT ---
EXAM DESCRIPTION: US - Thyroid Para Parotid Gland - 05/08/2023 1:57 pm CLINICAL HISTORY: Thyroid nodule COMPARISON: May 06, 2023 CT FINDINGS: The right lobe of the thyroid measures 3.7 centimeters. Several subcentimeter nodules right lobe likely benign The left lobe of the thyroid measures 5.6 centimeters. A 2.7 centimeter mostly isoechoic well-circumscribed nodule left lobe. It is cystic and solid appeari ng. It contains a few calcifications Additional smaller nodules likely benign IMPRESSION: 2.7 centimeter left thyroid nodule TR 3. Ultrasound-guided FNA recommended
[2023-05-08 16:14] VITALS: BP 118/76; TEMP 97.6
[2023-05-09] MEDS ORDERED: LEVOTHYROXINE SOD 0.025 MG TAB PO SCH (06:30)
== END 2023-05-08 16:50 | disposition home or self-care (01) ==
LOC: ER 17:55 → ERHOLD 23:11 → 4TH 05-07 11:38
PROVIDERS: ADMIT Internal Medicine; ATTEND Hospitalist
DX: I16.0 Hypertensive urgency (principal); R42 Dizziness and giddiness; R11.0 Nausea; R51.9 Headache, unspecified; E04.1 Nontoxic single thyroid nodule; I10 Essential (primary) hypertension; N18.30 Chronic kidney disease, stage 3 unspecified; H40.9 Unspecified glaucoma; E03.9 Hypothyroidism, unspecified
CPT/HCPCS: 93005; 93306; 85025 ×2; 81001; 36415; 85610; 80061; 85730; 84443; 83036; 84484 ×2; 84439; 80053 ×2; 83880; 70450; 70496; 70498; 70551; 76536; 99285; Q9967; J1650 ×2; G0378

== ENCOUNTER → 2023-05-30 | Day surgery (SDC) | payer OTHER ==
--- NOTE | 2023-05-30 13:11 | RAD REPORT ---
EXAM DESCRIPTION: US - Guided FNA Non Breast - 05/30/2023 10:44 am CLINICAL HISTORY: Thyroid nodule ICD E 04.1 COMPARISON: Ultrasound April 2023 TECHNIQUE: Risks, benefits and alternatives of procedure explained to the patient and informed conse nt obtained. Skin and subcutaneous tissues anesthetized with lidocaine. Under sonographic guidance, five 25 gauge needle passes were obtained into the dominant nodule within the left lobe of the thyroid gland. Specimens given to pathology. Patient experienced no immediate complication IMPRESSION: Fine-needle aspiration of a dominant nodule within left lobe of thyroid gland
== END ==
LOC: FNA 09:33
PROVIDERS: ATTEND Otolaryngology
PROC: 0G9G3ZX Drainage of Left Thyroid Gland Lobe, Percutaneous Approach, Diagnostic (ICD-10-PCS; principal; 2023-05-30)
DX: E04.1 Nontoxic single thyroid nodule (principal)
CPT/HCPCS: 88162; 88305

== ENCOUNTER 2023-06-08 20:43 | Observation (INO) | payer OTHER ==
--- OUTSIDE RECORDS SUMMARY | 2023-06-08 20:46 | XMS REPORT | Continuity of Care Document ---
Author Name Unknown Address [address] [facility] [place] [address] [facility] thconnect Address [address] [facility] [place] [address] Care Team Providers Care Cold Strip Feeder Name Role Phone Clarissa Krishnan Attending Clinician Unavailable Problems Condition Name Condition Details Condition Category Status Onset Date Resolution Date Last Treatment Date Treating Clinician Comments Source [id number] Glaucoma of right eye, unspecifie d glaucoma type Problem Active [facility] [id number] Mixed hyperlipid emia Problem [facility] [id number] Essential (primary) hypertensi on Problem [facility] [id number] Subclinica l hypothyroi dism Problem [facility] [id number] Left thyroid nodule Problem [facility] Social History Social Habit Start Date Stop Date Quantity Comments Source Sex Assigned At [facility] History of Tobacco Use [facility] Smoking Status Start Date Stop Date Source Unknown if ever smoked Commo n [facility] Never Smoker [facility] Medications Ordered Medication Name Filled Medication [...] eye_in_ the_eve mary} QD Lumigan 0.01 % Multi Vitamin Multi Vitamin No Multi Vitamin Lumigan 0.01 % Lumigan 0.01 % No 1{drop_ into_af fected_ eye_in_ the_eve mary} QD Lumigan 0.01 % Levothyroxi ne Sodium 25 MCG Levothyroxi ne Sodium 25 MCG No QD Levothyrox ine Sodium 25 MCG Alphagan P 0.1 % Alphagan P 0.1 % No 1{drop_ into_af fected_ eye} TID Alphagan P 0.1 % Fish Oil Fish Oil No Fish Oil Garlic Garlic No Garlic amLODIPine Besylate 10 MG amLODIPine Besylate 10 MG No 1{table t} QD amLODIPine Besylate 10 MG Losartan Potassium 50 MG Losartan Potassium 50 MG No 1{table t} QD Losartan Potassium 50 MG Vyzulta 0.024 % Vyzulta 0.024 % No Vyzulta 0.024 % Multi Vitamin Multi Vitamin No Multi Vitamin Lumigan 0.01 % Lumigan 0.01 % No 1{drop_ into_af fected_ eye_in_ the_eve mary} QD Lumigan 0.01 % Levothyroxi ne Sodium 25 MCG Levothyroxi ne Sodium 25 MCG No QD Levothyrox ine Sodium 25 MCG Alphagan P 0.1 % Alphagan P 0.1 % No 1{drop_ into_af fected_ eye} TID Alphagan P 0.1 % Fish Oil Fish Oil No Fish Oil Garlic Garlic No Garlic amLODIPine Besylate 10 MG amLODIPine Besylate 10 MG No 1{table t} QD amLODIPine Besylate 10 MG Losartan Potassium 50 MG Losartan Potassium 50 MG No 1{table t} QD Losartan Potassium 50 MG Multi Vitamin Multi Vitamin No Multi Vitamin Lumigan 0.01 % Lumigan 0.01 % No 1{drop_ into_af fected_ eye_in_ the_eve mary} QD Lumigan 0.01 % Levothyroxi ne Sodium 25 MCG Levothyroxi ne Sodium 25 MCG No QD Levothyrox ine Sodium 25 MCG Alphagan P 0.1 % Alphagan P 0.1 % No 1{drop_ into_af fected_ eye} TID Alphagan P 0.1 % Fish Oil Fish Oil No Fish Oil Garlic Garlic No Garlic amLODIPine Besylate 10 MG amLODIPine Besylate 10 MG No 1{table t} QD amLODIPine Besylate 10 MG Losartan Potassium 50 MG Losartan Potassium 50 MG No 1{table t} QD Losartan Potassium 50 MG Vyzulta 0.024 % Vyzulta 0.024 % No [...] Pneumovax (PPSV23) Pneumovax (PPSV23) 2018-03-13 14:28:00 Completed [facility] Pneumovax (PPSV23) Pneumovax (PPSV23) 2018-03-13 14:28:00 Completed [facility] Pneumovax (PPSV23) Pneumovax (PPSV23) 2018-03-13 14:28:00 Completed [facility] Shingrix Shingrix 2018-01-11 14:26:00 Completed [facility] Shingrix Shingrix 2018-01-11 14:26:00 Completed [facility] Shingrix Shingrix 2018-01-11 14:26:00 Completed [facility] Shingrix Shingrix 2017-08-15 14:25:00 Completed [facility] Shingrix Shingrix 2017-08-15 14:25:00 Completed [facility] Shingrix Shingrix 2017-08-15 14:25:00 Completed [facility] Prevnar 13 (PCV13) Prevnar 13 (PCV13) 2017-01-24 14:27:00 Completed [facility] Prevnar 13 (PCV13) Prevnar 13 (PCV13) 2017-01-24 14:27:00 Completed [facility] Prevnar 13 (PCV13) Prevnar 13 (PCV13) 2017-01-24 14:27:00 Completed [facility] Shingrix Shingrix Unknown Completed [facility] Pneumovax (PPSV23) Pneumovax (PPSV23) Unknown Completed [facility] Prevnar 13 (PCV13) Prevnar 13 (PCV13) Unknown Completed [facility] Shingrix Shingrix Unknown Completed [facility] Shingrix Shingrix Unknown Completed [facility] Pneumovax (PPSV23) Pneumovax (PPSV23) Unknown Completed [facility] Prevnar 13 (PCV13) Prevnar 13 (PCV13) Unknown Completed [facility] Shingrix Shingrix Unknown Completed [facility] Shingrix Shingrix Unknown Completed [facility] Pneumovax (PPSV23) Pneumovax (PPSV23) Unknown Completed [facility] Prevnar 13 (PCV13) Prevnar 13 (PCV13) Unknown Completed [facility] Shingrix Shingrix Unknown Completed [facility] Sh[facility] Shingrix Unknown Completed [facility] Pneumovax (PPSV23) Pneumovax (PPSV23) Unknown Completed [facility] Prevnar 13 (PCV13) Prevnar 13 (PCV13) Unknown Completed [facility] Shingrix Shingrix Unknown Completed [facility] Shingrix Shingrix Unknown Completed [facility] Pneumovax (PPSV23) Pneumovax (PPSV23) Unknown Completed [facility] Prevnar 13 (PCV13) Prevnar 13 (PCV13) Unknown Completed [facility] Shingrix Shingrix Unknown Completed [facility] Shingrix Shingrix Unknown Completed [facility] Pneumovax (PPSV23) Pneumovax (PPSV23) Unknown Completed [facility] Prevnar 13 (PCV13) Prevnar 13 (PCV13) Unknown Completed [facility] Shingrix Shingrix Unknown Completed [facility] Shingrix Shingrix Unknown Completed [facility] Pneumovax (PPSV23) Pneumovax (PPSV23) Unknown Completed [facility] Prevnar 13 (PCV13) Prevnar 13 (PCV13) Unknown Completed [facility] Shingrix Shingrix Unknown Completed [facility] Shingrix Shingrix Unknown Completed [facility] Pneumovax (PPSV23) Pneumovax (PPSV23) Unknown Completed [facility] Prevnar 13 (PCV13) Prevnar 13 (PCV13) Unknown Completed [facility] Shingrix Shingrix Unknown Completed [facility] Vital Signs Vital Name Observation Time Observation Value Comments Bulmaro moore respiratory rate 2023-05-12 13:40:00 16 /min [facility] blood pressure systolic 2023-05-12 13:40:00 134 mm[Hg] [facility] blood pressure diastolic 2023-05-12 13:40:00 78 mm[Hg] [facility] height 2023-05-12 13:40:00 70.5 [in_i] Comm on [facility] weight 2023-05-12 13:40:00 237 [lb_av] Comm on [facility] temperature 2023-05-12 13:40:00 97.3 [degF] Com mon [facility] bmi 2023-05-12 13:40:00 33.52 kg/m2 Comm on [facility] oximetry 2023-05-12 13:40:00 98 % Commo n [facility] height 2022-12-20 14:00:00 70.5 [in_i] Comm on [facility] weight 2022-12-20 14:00:00 242.2 [lb_av] Co mmon [facility] temperature 2022-12-20 14:00:00 97.7 [degF] Com [facility] bmi 2022-12-20 14:00:00 34.26 kg/m2 Comm on [facility] oximetry 2022-12-20 14:00:00 97 % Commo n [facility] respiratory rate 2022-12-20 14:00:00 16 /min [facility] blood pressure systolic 2022-12-20 14:00:00 134 mm[Hg] [facility] blood pressure diastolic 2022-12-20 14:00:00 70 mm[Hg] [facility] height 2022-12-20 15:00:00 70.5 [in_i] Comm on [facility] weight 2022-12-20 15:00:00 242.2 [lb_av] Co [facility] temperature 2022-12-20 15:00:00 97.7 [degF] Com [facility] bmi 2022-12-20 15:00:00 34.26 kg/m2 Comm on [facility] oximetry 2022-12-20 15:00:00 97 % Commo n [facility] respiratory rate 2022-12-20 15:00:00 16 /min [facility] blood pressure systolic 2022-12-20 15:00:00 134 mm[Hg] Common [facility] blood pressure diastolic 2022-12-20 15:00:00 70 mm[Hg] Common [facility] height 2021-12-21 13:20:00 70.5 [in_i] Comm on [facility] weight 2021-12-21 13:20:00 234.6 [lb_av] Co on [facility] temperature 2021-12-21 13:20:00 98.6 [degF] Com [facility] bmi 2021-12-21 13:20:00 33.18 kg/m2 Comm on [facility] oximetry 2021-12-21 13:20:00 97 % Commo n [facility] respiratory rate 2021-12-21 13:20:00 16 /min [facility] blood pressure systolic 2021-12-21 13:20:00 130 mm[Hg] [facility] blood pressure diastolic 2021-12-21 13:20:00 72 mm[Hg] Common [facility] height 2021-12-21 14:00:00 70.5 [in_i] Comm on [facility] weight 2021-12-21 14:00:00 234.6 [lb_av] Co mmon [facility] temperature 2021-12-21 14:00:00 98.6 [degF] Com mon [facility] bmi 2021-12-21 14:00:00 33.18 kg/m2 Comm on [facility] oximetry 2021-12-21 14:00:00 97 % Commo n [facility] respiratory rate 2021-12-21 14:00:00 16 /min [facility] blood pressure systolic 2021-12-21 14:00:00 130 mm[Hg] [facility] blood pressure diastolic 2021-12-21 14:00:00 72 mm[Hg] [facility] height 2021-11-07 14:00:00 70.5 [in_i] Comm on [facility] weight 2021-11-07 14:00:00 225 [lb_av] Comm on [facility] temperature 2021-11-07 14:00:00 98.4 [degF] Com mon [facility] bmi 2021-11-07 14:00:00 31.82 kg/m2 Comm on [facility] oximetry 2021-11-07 14:00:00 97 % Commo n [facility] respiratory rate 2021-11-07 14:00:00 16 /min [facility] blood pressure systolic 2021-11-07 14:00:00 138 mm[Hg] [facility] blood pressure diastolic 2021-11-07 14:00:00 76 mm[Hg] [facility] Encounters Start Date/Time End Date/Time Encounter Type Admission Type Attending Clinicians Care Facility Care Department Encounter ID Source 2022-12-19 13:27:00 Outpatient Ariella Clarissa [facility] [id number] [facility] 2022-03-06 13:36:01 Outpatient Clarissa Krishnan [facility] [id number] [facility] 2021-12-19 11:26:03 Outpatient Clarissa Krishnan [facility] [id number] [facility] 2021-11-05 13:42:02 Outpatient Clarissa Krishnan [facility] [id number] [facility] 2021-10-29 11:22:05 Outpatient Clarissa Krishnan [facility] [id number] [facility] 2023-05-12 00:00:00 2023-05-12 00:00:00 (HOSP F/U) Hospital Follow Up [facility] [id number] [facility] 2023-05-09 00:00:00 2023-05-09 00:00:00 (TEL) [facility] [id number] [facility] 2023-05-06 00:00:00 2023-05-06 00:00:00 (TEL) [facility] [id number] [facility] 2022-12-30 00:00:00 2022-12-30 00:00:00 (TEL) [facility] [id number] [facility] 2022-12-23 00:00:00 2022-12-23 00:00:00 (TEL) [facility] [id number] [facility] 2022-12-20 00:00:00 2022-12-20 00:00:00 SUB ANNUAL [facility] WELLNESS VISIT [facility] STL[facility]C [id number] [facility] 2022-12-20 00:00:00 2022-12-20 00:00:00 OFFICE VISIT ESTAB PT LEVEL 3 [facility] STL[facility] [id number] [facility] 2022-12-11 00:00:00 2022-12-11 00:00:00 (TEL) [facility] ST[facility] [id number] [facility] 2021-12-21 00:00:00 2021-12-21 00:00:00 OFFICE VISIT EST PT LEVEL 3 [facility] STLC [id number] [facility] 2021-12-21 00:00:00 2021-12-21 00:00:00 (MCR WELL) Medicare Wellness [facility] STLC [id number] [facility] 2021-11-07 00:00:00 2021-11-07 00:00:00 OFFICE VISIT NEW PT LEVEL 3 [facility] STLC [id number] [facility] Results Test Description Test Time Test Comments Results Result Co mments Source COMPREHENSIVE METABOLIC [id number] 00:00:00* Test Item Value Reference Range Interpretation Comme nts ALBUMIN (test code = 1751-7) 4.9 G/DL See_Comment [Automated messa ge] The system [...] result as normal/abnormal. CALCIUM (test code = 24833-2) 9.4 MG/DL See_Comment [Automated messa ge] The [...] as normal/abnormal. CALC GLOBULIN (test code = 90021-6) 2.1 G/DL See_Comment [Automated messa ge] The [...] normal/abnormal. eGFR (2020 CKD-EPI) (test code = 95268-1) 64 ML/MIN/1.73 See_Comment [Automated messa ge] The [...]
--- NOTE | 2023-06-08 22:09 | RAD REPORT ---
EXAM DESCRIPTION: [facility] Single View06/08/2023 9:49 pm CLINICAL HISTORY: Chest pain COMPARISON: none FINDINGS: The lungs appear clear of acute infiltrate. The heart is normal size IMPRESSION: No acute abnormalities displayed
[2023-06-08 22:24] LABS: Potassium 3.8 mEq/L (3.5-5.1)
[2023-06-08] MEDS ORDERED: DIPHENHYDRAMINE 50 MG/ML VIAL ONE (22:34)
[2023-06-08] MEDS ORDERED: METOCLOPRAMIDE 10 MG/2mL INJ ONE (22:35)
[2023-06-08] MEDS ORDERED: NA CHLORIDE 0.9% 1,000 ML ONE (22:35)
[2023-06-08 22:39] LABS: Absolute Lymphocytes (CBC) 1.1 K/uL (0.7-4.9); Hematocrit 37.3 % (39.6-49.0); Lymphocytes % 9.1 % (15.3-44.8); MCV 87.2 fL (80-100); MPV 8.1 fL (7.6-11.3); Platelets 245 thou/uL (152-406); RBC Red Blood Cell Count 4.28 M/uL (4.33-5.43)
--- NOTE | 2023-06-09 00:04 | ER ---
Nurse's Notes [facility] [place] Name: Cipriano Wang Age: 78 yrs Sex: Male : 1945 Arrival Date: 06/08/2023 Time: 20:43 Bed 13 Private MD: Diagnosis: Vertigo Presentation: 06/08 21:05 Chief complaint: Patient states: reports dizzy spells that started around 1530 today. cp4 States his blood pressure has been high as well. Coronavirus screen: Vaccine status: Client denies travel out of the [place] in the last 14 days. At this time, the client does not indicate any symptoms associated with coronavirus-19. Ebola Screen: Patient negative for fever greater than or equal to 101.5 degrees Fahrenheit, and additional compatible Ebola Virus Disease symptoms Patient denies exposure to infectious person. Patient denies travel to an Ebola-affected area in the 21 days before illness onset. No symptoms or risks identified at this time. Initial Sepsis Screen: Does the patient meet any 2 criteria? No. Patient's initial sepsis screen is negative. Does the patient have a suspected source of infection? No. Patient's initial sepsis screen is negative. Risk Assessment: Do you want to hurt yourself or someone else? Patient reports no desire to harm self or others. Onset of symptoms was June 08, 2023. 21:05 Method Of Arrival: Ambulatory cp4 21:05 Acuity: NOLAN 3 cp4 Triage Assessment: 21:07 General: Appears in no apparent distress. Behavior is calm, cooperative, appropriate cp4 for age. Pain: Denies pain. Neuro: No deficits noted. Historical: - Allergies: 06/09 07:41 No Known Allergies; aa5 - PMHx: 06/08 21:07 Glaucoma; cp4 - Immunization history:: Adult Immunizations up to date. - Social history:: Smoking status: Patient denies any tobacco usage or history of. Screenin:08 [facility] ED Fall Risk Assessment (Adult) History of falling in the last 3 months, cp4 including since admission No falls in past 3 months (0 pts) Confusion or Disorientation No (0 pts) Intoxicated or Sedated No (0 pts) Impaired Gait No (0 pts) Mobility Assist Device Used No (0 pt) Altered Elimination No (0 pt) Score/Fall Risk Level 0 - 2 = Low Risk Oriented to surroundings, Maintained a safe environment, Educated pt \T\ family on fall prevention, incl call for assistance when getting out of bed, Assessed \T\ reinforced patient's understanding of fall precautions, Hourly rounding (assess needs \T\ fall precautionary measures) done. Abuse screen: Denies threats or abuse. Nutritional screening: No deficits noted. Tuberculosis screening: No symptoms or risk factors identified. Assessment: 21:08 General: Appears in no apparent distress. Behavior is calm, cooperative, appropriate cp4 for age. Pain: Denies pain. Neuro: No deficits noted. Vital Signs: 21:05 BP 137 / 88; Pulse 91; Resp 18; Temp 98.1; Pulse Ox 99% ; Weight 58.97 kg; Height 6 ft. cp4 0 in. ; 22:30 BP 116 / 71; Pulse 66; Resp 20; Pulse Ox 97% ; bp 21:05 Body Mass Index 17.63 (58.97 kg, 182.88 cm) cp4 ED Course: 20:46 Patient arrived in ED. jj6 20:59 Shania Payton is Primary Nurse. cp4 21:07 Triage completed. cp4 21:07 Arm band placed on right wrist. Patient placed in an exam room, on a stretcher. cp4 21:12 Isaias Rojas MD is Attending Physician. ec2 21:44 Troponin HS Sent. cp4 21:44 CBC with Diff Sent. cp4 21:44 Basic Metabolic Panel Sent. cp4 21:51 XRAY Chest (1 view) In Process Unspecified. EDMS 22:05 Inserted saline lock: 20 gauge in right antecubital area, using aseptic technique. cp4 22:49 CT Head Brain wo Cont In Process Unspecified. EDMS 23:08 Primary Nurse role handed off by Shania Payton bp 23:08 Dameon Ann, RN is Primary Nurse. bp 06/09 00:00 Patient has correct armband on for positive identification. Bed in low position. Call jw7 light in reach. 00:11 Garrison Mcmanus MD is Hospitalizing Provider. ec2 06:12 Isaias Rojas MD is Attending Physician. ec2 Administered Medications: 06/08 22:30 Drug: NS 0.9% IV 1000 ml IV at 1 bolus Per protocol; 1000 mL bolus Route: IV; Rate: 1 bp bolus; Site: right antecubital; 22:30 Drug: metoCLOPramide IVP 10 mg IVP once; over 1 to 2 minutes Route: IVP; Site: right bp antecubital; 22:30 Drug: diphenhydrAMINE IVP 25 mg IVP once Route: IVP; Site: right antecubital; bp Medication: 21:08 VIS not applicable for this client. cp4 Outcome: 06/09 00:04 ER care complete, transfer ordered by . ec2 00:11 Decision to Hospitalize by Provider. ec2 08:13 Patient left the ED. aa5 Signatures: Dispatcher [employer] Jennifer Farmer RN RN aa5 Dameon Ann RN RN Mandy Ramos6 Denisse Kwon RN RN jw7 Isaias Rojas MD MD ec2 Shania Payton cp4
--- NOTE | 2023-06-09 00:04 | EDPHYS ---
Physician Documentation [facility] Name: Cipriano Wang Age: 78 yrs Sex: Male : 1945 Arrival Date: 06/08/2023 Time: 20:43 Bed 13 Private MD: ED Physician Isaias Rojas HPI: 06/08 21:56 This 78 yrs old Male presents to ER via Ambulatory with complaints of High ec2 Blood Pressure, HOT/SWEATING SPELLS, Dizziness. 21:56 Patient arrives today for evaluation of dizziness. Reports bouts of dizziness since ec2 last month, recent admission including hospitalization for his dizziness. Patient reports he has had bouts that he feels were he turns his head and this worsens. Patient reports some nausea, no vomiting, no chest pain, no difficulty breathing, no abdominal pain. Reports recent diagnosis of hypertension as well as hypothyroidism. He is on antihypertensive as well as levothyroxine. Patient also reports some hot and cold as well as this afternoon. Denies any illnesses.. Historical: - Allergies: 06/09 07:41 No Known Allergies; aa5 - PMHx: 06/08 21:07 Glaucoma; cp4 - Immunization history:: Adult Immunizations up to date. - Social history:: Smoking status: Patient denies any tobacco usage or history of. ROS: 21:56 Constitutional: as per hpi ec2 Exam: 21:56 Constitutional: GEN: NAD Head: atraumatic Eyes: EOMI Ears: External ears are ec2 normal. CV: regular rate LUNGS: no respiratory distress ABD: non-distended SKIN: no evidence of rashes MSK: no evidence of trauma NEURO: moves all extremities equally, no pronator drift, cranial nerves II through XII intact, strength intact in all 4 extremities, sensation intact, normal [id number]. Vital Signs: 21:05 BP 137 / 88; Pulse 91; Resp 18; Temp 98.1; Pulse Ox 99% ; Weight 58.97 kg; Height 6 ft. cp4 0 in. ; 22:30 BP 116 / 71; Pulse 66; Resp 20; Pulse Ox 97% ; bp 21:05 Body Mass Index 17.63 (58.97 kg, 182.88 cm) cp4 MDM: 21:32 Patient medically screened. ec2 21:58 Data reviewed: vital signs. ED course: Patient arrives today for evaluation of ec2 dizziness. Examination remarkable for neuro intact individual is otherwise in no acute distress. Will obtain lab work, CT imaging and treat the patient symptoms. Currently considered electrolyte disturbance, thyroid pathology, cardiac abnormality such as arrhythmia. . 22:18 ED course: EKG independently reviewed and interpreted by me, shows normal sinus rhythm, ec2 rate of 82, no acute ST segment elevations, nonconcerning intervals.. 22:44 ED course: Metabolic profile reassuring, CBC shows slight leukocytosis, slight anemia ec2 appreciated. Troponin within normal ranges, chest x-ray shows no acute intrathoracic process. . 22:57 ED course: External record review shows negative MR of the brain. CT scan of the head ec2 with CT angio head and neck shows no acute flow-limiting stenosis. . 06/09 00:02 ED course: Attempted to ambulate patient myself, patient remains unstable on his feet. ec2 Will admit the patient.. 06/08 21:36 Order name: Basic Metabolic Panel; Complete Time: 22:43 ec2 06/08 21:36 Order name: CBC with Diff; Complete Time: 22:43 ec2 06/08 21:36 Order name: Troponin HS; Complete Time: 22:43 ec2 06/09 00:25 Order name: Urinalysis w/ reflexes EDMS 06/09 00:25 Order name: CBC with Automated Diff EDMS 06/09 00:25 Order name: CBC with Automated Diff EDMS 06/09 00:25 Order name: Comprehensive Metabolic Panel EDMS 06/09 00:25 Order name: Comprehensive Metabolic Panel EDMS 06/08 21:36 Order name: XRAY Chest (1 view); Complete Time: 22:43 ec2 06/08 21:56 Order name: CT Head Brain wo Cont ec2 06/09 00:27 Order name: Brain Wo Cont EDMS 06/08 21:36 Order name: EKG; Complete Time: 21:36 ec2 06/08 21:36 Order name: Cardiac monitoring; Complete Time: 21:38 ec2 06/08 21:36 Order name: EKG - Nurse/Tech; Complete Time: 22:20 ec2 06/08 21:36 Order name: IV Saline Lock; Complete Time: 21:38 ec2 06/08 21:36 Order name: Labs collected and sent; Complete Time: 21:44 ec2 06/08 21:36 Order name: O2 Per Protocol; Complete Time: 21:38 ec2 06/08 21:36 Order name: O2 Sat Monitoring; Complete Time: 21:38 ec2 Administered Medications: 06/08 22:30 Drug: NS 0.9% IV 1000 ml IV at 1 bolus Per protocol; 1000 mL bolus Route: IV; Rate: 1 bp bolus; Site: right antecubital; 22:30 Drug: metoCLOPramide IVP 10 mg IVP once; over 1 to 2 minutes Route: IVP; Site: right bp antecubital; 22:30 Drug: diphenhydrAMINE IVP 25 mg IVP once Route: IVP; Site: right antecubital; bp Disposition Summary: 06/09/23 00:11 Hospitalization Ordered Notes: Hospitalization Status: Inpatient Admission ec2 Provider: Garrison Mcmanus ec2 Condition: Stable(06/09/23 00:11) ec2 Problem: an acute exacerbation(06/09/23 00:11) ec2 Symptoms: are unchanged(06/09/23 00:11) ec2 Bed/Room Type: Standard ec2 Location: Telemetry/MedSurg (Inpatient)(06/09/23 07:19) bd Room Assignment: 225(06/09/23 07:19) Diagnosis - Vertigo ec2 Forms: - Medication Reconciliation Form ec2 - SBAR form ec2 - Leadership Thank You Letter ec2 Signatures: Dispatcher [employer] EDMS Bridget Childs Audri, RN RN aa5 Catie Kang RN RN cg Peltier, Brian, RN RN bp Corral, Edwin, MD MD ec2 Shania Payton cp4 Corrections: (The following items were deleted from the chart) 21:59 21:56 Patient arrives today for evaluation of dizziness. Reports bouts of dizziness ec2 since last month, recent admission including hospitalization for his dizziness. Patient reports he has had bouts that he feels were he turns his head and this worsens. Patient reports some nausea, no vomiting, no chest pain, no difficulty breathing, no abdominal pain. Reports recent diagnosis of hypertension as well as hypothyroidism. He is on antihypertensive as well as levothyroxine.. ec2 06/09 00:10 00:04 transferring doc ec2 ec2 00:10 00:04 Other Acute Care Facility ec2 ec2 00:04 Higher level of care ec2 ec2 00:04 Stable ec2 ec2 00:04 an ongoing problem ec2 ec2 00:04 are unchanged ec2 ec2 00:04 Vertigo ec2 ec2 : 00:02 ED course: Attempted to ambulate patient myself, patient remains unstable on his ec2 feet. Will admit the patient. Given capacity issues in this hospital, will transfer the patient.. ec2 00:11 Telemetry/MedSurg (Inpatient) ec2 cg 00: ec2 cg : [facility] ER HOLD cg bd 00: ERHOLD- cg bd
[2023-06-09] MEDS ORDERED: ACETAMINOPHEN 325 MG TABLET PO PRN (00:20)
[2023-06-09] MEDS ORDERED: ONDANSETRON 4 MG/2 ML VIAL IV PRN (00:20)
[2023-06-09] MEDS ORDERED: MECLIZINE HCL 12.5 MG TAB PO PRN (00:24)
--- NOTE | 2023-06-09 00:26 | P.HP ---
Certification for Inpatient Patient admitted to: Observation With expected LOS: <2 Midnights Practitioner: I am a practitioner with admitting privileges, knowledge of patient current condition, hospital course, and medical plan of care. Services: Services provided to patient in accordance with Admission requirements found in Title 42 Section 412.3 of the Code of Federal Regulations Patient History Date of Service: 06/09/23 Reason for admission: Vertigo History of Present Illness: 78-year-old male with past medical history of hypertension, hyperlipidemia and hypothyroidism who started having vertigo and dizziness which has been going on for the last 2 days and has been progressively worsening and was brought to ER. Patient denies any chest pain or shortness of breath. Denies any palpitation. No previous history of atrial fibrillation. No focal weakness but has difficulty in ambulation. Symptoms worse when lying on the left side. Denies any earache. No recent history of any trauma or herpes infection. Patient has difficulty in balancing. Symptoms were progressively worsening and was brought to ER Patient was assessed in the ER and had a CT of the head which was negative for any acute changes. Patient is being admitted for monitoring and an MRI of the brain to rule out posterior circulation CVA. Allergies No Known Allergies Allergy (Unverified 08/01/12 10:56) Home medications list reviewed: Yes Home Medications: Bimatoprost [Lumigan] 1 drop EACH EYE BEDTIME 05/07/23 Brimonidine Tartrate [Alphagan P] 1 drop EACH EYE Q12HR 05/07/23 Amlodipine [Norvasc*] 10 mg PO DAILY 30 Days #30 tab 05/08/23 Levothyroxine [Synthroid] 25 mcg PO DAILY 30 Days #30 mcg 05/08/23 Losartan Potassium [Cozaar] 50 mg PO DAILY 30 Days #30 tablet 05/08/23 - Past Medical/Surgical History Diabetic: No Past Medical History: Reviewed- Non-Contributory -: Glaucoma -: Hypertension, hyperlipidemia, hypothyroidism Past Surgical History: Reviewed- Non-Contributory - Family History Family History: Reviewed- Non-Contributory - Social History Smoking Status: Never smoker Alcohol use: No CD- Drugs: No Caffeine use: Yes Review of Systems 10-point ROS is otherwise unremarkable Neurological: Incoordination Physical Examination - Vital Signs Temperature: 98.8 F Blood Pressure: 138/78 Pulse: 76 Respirations: 18 Pulse Ox (%): 98 - Physical Exam General: Alert, In no apparent distress, Oriented x3 HEENT: Atraumatic, Normocephalic Neck: Supple, JVD not distended, No Thyromegaly, No LAD Respiratory: Clear to auscultation bilaterally, Normal air movement Cardiovascular: Regular rate/rhythm, Normal S1 S2, No gallops, No rubs Capillary refill: <2 Seconds Gastrointestinal: Soft and benign, W/out hepatosplenomegaly, No ascites, No tenderness Musculoskeletal: No clubbing, No swelling Integumentary: No rashes, No breakdown Neurological: Normal speech, Normal strength at 5/5 x4 extr, Normal tone, Sensation intact, Cranial nerves 3-12 intact, Normal reflexes 2+, Normal affect Lymphatics: No axilla or inguinal lymphadenopathy - Studies Laboratory Data (last 24 hrs) 06/08/23 06/08/23 21:43 21:43 WBC 12.20 H Hgb 13.1 L Hct 37.3 L Plt Count 245 Sodium 141 Potassium 3.8 BUN 14 Creatinine 0.84 Glucose 125 H Assessment and Plan - Problems (Diagnosis) (1) Benign positional vertigo Current Visit: Yes Status: Acute (2) Posterior circulation stroke Current Visit: Yes Status: Acute (3) Hypertension Current Visit: Yes Status: Acute (4) Hyperlipidemia Current Visit: Yes Status: Acute Plan: CVA/TIA to rule out posterior circulation CVA No focal weakness Started on aspirin and statin CT findings noted MRI brain ordered Monitor neuro vital signs Monitor under telemetry Benign positional vertigo Started on meclizine PT OT evaluation Hypertension Antihypertensives titrated Continue home medications and titrate as needed Hyperlipidemia Continue statin Hypothyroidism Will get a TSH level Continue home medications and titrate as needed GI/DVT prophylaxis Advanced directive full code Discharge Plan: Home - Advance Directives Does patient have a Living Will: No Does patient have a Durable POA for Healthcare: No Time Spent Managing Pts Care (In Minutes): 54
[2023-06-09 01:07] VITALS: BMI 17.6
[2023-06-09] MEDS ORDERED: NA CHLORIDE 0.9% 1,000 ML ONE (01:59)
[2023-06-09] MEDS: NA CHLORIDE 0.9% 1,000 ML IV SCH (02:00)
[2023-06-09 03:37] LABS: Specific Gravity 1.007 (1.005-1.030); Urine Bilirubin NEGATIVE (Negative); Urine Blood Negative (Negative); Urine Clarity Clear (Clear); Urine Color Colorless (Yellow); Urine Glucose NEGATIVE (Negative); Urine Protein NEGATIVE (Negative); Urine Urobilinogen Normal (Normal)
[2023-06-09 08:26] VITALS: O2SAT 97
--- NOTE | 2023-06-09 08:58 | RAD REPORT ---
EXAM DESCRIPTION: MRI - Brain Wo Cont - 06/09/2023 8:41 am CLINICAL HISTORY: Vertigo COMPARISON: Brain Wo Cont dated 05/07/2023 TECHNIQUE: Sagittal T1-weighted images were obtained along with PD/heavily T2-weighted and T2-FLAIR images. Axial DWI and ADC mapping sequences were also obtained along with coronal heavily T2-weighted images were obtained. FINDINGS: No intracranial hemorrhage, mass or acute infarction. There is no edema or shift of midlin e structures. No extra-axial fluid collections. Signal voids are seen as a normal finding in the jen r intracranial vessels. Mild T2/FLAIR hyperintense signal foci within the subcortical and deep white matter. This is unchanged. Mild cerebral atrophy. Mastoid air cells and paranasal sinuses are clear. IMPRESSION: No acute intracranial abnormality. Specifically, no evidence of acute infarct. Mild unit nurse oralia small vessel ischemic changes.
[2023-06-09] MEDS: BRIMONIDINE TARTRATE OPTH SCH (09:00)
[2023-06-09] MEDS: LOSARTAN POTASSIUM 50 MG TABLET PO SCH (10:02)
[2023-06-09] MEDS: AMLODIPINE 10 MG TAB PO SCH (10:02)
[2023-06-09] MEDS: LEVOTHYROXINE SOD 0.025 MG TAB PO SCH (10:02)
[2023-06-09] MEDS: ENOXAPARIN 40 MG/0.4 ML SQ SCH (10:02)
[2023-06-09] MEDS: ASPIRIN EC 81 MG TAB PO SCH (10:02)
--- NOTE | 2023-06-09 13:44 | RAD REPORT ---
EXAM DESCRIPTION: CT - Head Brain Wo Cont - 06/09/2023 6:51 am CLINICAL HISTORY: 78-year-old male with headache. COMPARISON: 05/06/2023. TECHNIQUE: CT brain without contrast. This exam was performed according to our departmental dose opt imization program which includes use of automated exposure control, adjustment of the mA and/or kV ac cording to patient size and/or use of iterative reconstruction technique. FINDINGS: The ventricles, sulci, and cisterns are within normal limits. The arauz-white matter diff erentiation is preserved. There is no mass effect, midline shift, intra- or extra-axial fluid colle ction/acute hemorrhage. The osseous structures are unremarkable. The paranasal sinuses and mastoi d air cells are clear. IMPRESSION: No acute intracranial abnormalities. Electronically signed by: Blanca Spaulding MD 06/08/2023 11:31 PM PEDIATRIC ORTHODONTIST Due to temporary technical issues with the PACS/Fluency reporting system, reports are being signed by the in house radiologists without review as a courtesy to insure prompt reporting. The interpreting radiologist is fully responsible for the content of the report
--- NOTE | 2023-06-09 14:28 | EKG ---
Test Date: 2023-06-08 Test Time: 22:14:06 Research Investigator: ZEN MEASUREMENT RESULTS: Intervals: Rate: 82 UT: QRSD: 76 QT: 376 QTc: 439 [place]: P: UT: QRS: 29 T: 13 INTERPRETIVE STATEMENTS: Accelerated Junctional rhythm Abnormal ECG Compared to ECG 05/06/2023 18:37:44 Accelerated junctional rhythm now present Sinus rhythm no longer present Electronically Signed On 06-09-23 14:26:09 CORN HUSK BALER by Prasad Trevizo
--- NOTE | 2023-06-09 20:32 | RAD REPORT ---
EXAM DESCRIPTION: USCarotid Artery Bilateral06/09/2023 8:22 pm CLINICAL HISTORY: Vertigo COMPARISON: None FINDINGS: The velocity of the right internal carotid artery equals 77 cm/sec. The right ICA/CCA rati o normal The velocity of the left internal carotid artery equals 69 cm/sec. The left ICA/CCA ratio normal Mild plaque is present within the carotid arteries. The vertebral arteries demonstrate antegrade flow IMPRESSION: No significant abnormality is displayed NASCET criteria used. Mild 0-49% stenosis Moderate 50-69% stenosis Severe 70-99% stenosis
[2023-06-09] MEDS: ATORVASTATIN 40 MG TAB PO SCH (20:42)
[2023-06-09] MEDS: BIMATOPROST OPHTH DROPS/2.5 ML BTL OPTH SCH (20:42)
[2023-06-10 06:31] LABS: Absolute Lymphocytes (CBC) 1.5 K/uL (0.7-4.9); Hematocrit 40.5 % (39.6-49.0); Lymphocytes % 13.2 % (15.3-44.8); MCV 87.8 fL (80-100); MPV 7.8 fL (7.6-11.3); Platelets 328 thou/uL (152-406); RBC Red Blood Cell Count 4.61 M/uL (4.33-5.43)
[2023-06-10 06:55] LABS: Albumin 3.9 g/dL (3.4-5.0); Bilirubin Total 0.9 mg/dL (0.2-1.0); Potassium 3.8 mEq/L (3.5-5.1); Protein, Total 7.5 g/dL (6.4-8.2)
[2023-06-10 07:27] VITALS: TEMP 97.4
[2023-06-10] MEDS: POTASSIUM CL SA 10 MEQ TAB PO ONE (08:51)
[2023-06-10 08:58] VITALS: BP 129/81
== END 2023-06-10 10:45 | disposition home or self-care (01) ==
LOC: ER 20:43 → ERHOLD 06-09 00:20 → 2ND 06-09 07:23
PROVIDERS: ADMIT Family Medicine; ATTEND Hospitalist
DX: H81.10 Benign paroxysmal vertigo, unspecified ear (principal); I10 Essential (primary) hypertension; E78.5 Hyperlipidemia, unspecified; E03.9 Hypothyroidism, unspecified
CPT/HCPCS: 93005; 85025 ×2; 80048; 36415 ×2; 81003; 84484; 80053; 70450; 71045; 93880; 70551; J2765; J1200; J1650 ×2; J7030 ×3; 96374; 96375; 99284; G0378